=== PATIENT | female | born 2005 | race Caucasian/White ===

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

== ENCOUNTER 2023-03-13 14:31 | Emergency (ER) | payer MEDICAID ==
[~2023-03-13] VITALS: Ht 162.6 cm; Wt 113.5 kg
[~2023-03-13 14:31] MED LIST changes: +ALBU0.0912 INH; +METH4TAB1 PO
[2023-03-13 14:36] VITALS: BP 145/105; PULSE 107; RESP 17; TEMP 97.7; O2SAT 99
[2023-03-13] MEDS ORDERED: IBUP-2213 PO (15:58)
== END 2023-03-13 16:05 | disposition home or self-care (01) ==
LOC: MED 14:31
DX: S93.492A Sprain of other ligament of left ankle, initial encounter (principal); J45.909 Unspecified asthma, uncomplicated; Z79.899 Other long term (current) drug therapy; X58.XXXA Exposure to other specified factors, initial encounter; Y93.89 Activity, other specified; Y92.89 Other specified places as the place of occurrence of the external cause; Y99.8 Other external cause status
CPT/HCPCS: 73610; 73630; 99284

== ENCOUNTER 2023-08-21 18:43 | Emergency (ER) | payer MEDICAID ==
[~2023-08-21] VITALS: Ht 162.6 cm; Wt 104.3 kg
[~2023-08-21 18:43] MED LIST changes: +IBUP-2213 PO
[2023-08-21 19:58] VITALS: BP 159/91; PULSE 98; RESP 16; TEMP 98.1; O2SAT 100
[2023-08-21] MEDS: KETOROLAC 60 MG/2 ML VIAL IM ONE (22:00)
[2023-08-21] MEDS ORDERED: LIDOCAINE MPF 1% 5 ML ONE (22:24)
[2023-08-21] MEDS ORDERED: IBUP-2213 PO (22:36)
[2023-08-21] MEDS ORDERED: SULF-59 PO (22:36)
[2023-08-21] MEDS: LIDOCAINE MPF 1% 10 MG/ML VIAL INJ ONE (22:39)
== END 2023-08-21 22:41 | disposition home or self-care (01) ==
LOC: MED 18:43
DX: L02.411 Cutaneous abscess of right axilla (principal); L03.111 Cellulitis of right axilla; J45.909 Unspecified asthma, uncomplicated; Z98.890 Other specified postprocedural states; Z79.899 Other long term (current) drug therapy
CPT/HCPCS: 10060; 96372; 99284; J1885; J2001

== ENCOUNTER 2023-11-07 13:59 | Emergency (ER) | payer MEDICAID ==
[~2023-11-07] VITALS: Ht 157.5 cm; Wt 122.0 kg
[~2023-11-07 13:59] MED LIST changes: +SULF-59 PO
[2023-11-07 14:09] VITALS: BP 145/95; PULSE 102; RESP 20; TEMP 97.7; O2SAT 97
[2023-11-07 14:59] LABS: BASOPHILS # (AUTO) 0.1 K/uL (0.00-0.22); BASOPHILS % (AUTO) 0.7 % (0.0-2.0); EOSINOPHILS # (AUTO) 0.3 K/uL (0-0.4); EOSINOPHILS % (AUTO) 2.3 % (0.0-4.0); HEMATOCRIT 35.5 % (36-48); HEMOGLOBIN 11.4 g/dL (12.0-16.0); LYMPHOCYTES # (AUTO) 3.8 K/uL (2.5-16.5); LYMPHOCYTES % (AUTO) 30.4 % (20.5-51.1); MEAN CORPUSCULAR HEMOGLOBIN 26 pg (27-31); MEAN CORPUSCULAR HGB CONC 32 g/dL (33-37); MEAN CORPUSCULAR VOLUME 81.2 fL (80-94); MONOCYTES # (AUTO) 0.9 K/uL (0.8-1.0); MONOCYTES % (AUTO) 7.3 % (1.7-9.3); NEUTROPHILS # (AUTO) 7.3 K/uL (1.8-7.7); NEUTROPHILS % (AUTO) 59.3 % (42.2-75.2); PLATELET COUNT (AUTO) 498 K/uL (140-450); RED BLOOD CELL COUNT(AUTO) 4.37 MIL/uL (4.20-5.40); RED CELL DISTRIBUTION WIDTH 17.8 % (11.6-13.7); WHITE BLOOD COUNT (AUTO) 12.4 K/uL (4.5-11.0)
[2023-11-07 15:18] LABS: ANION GAP 10.3 (8-16); CALCIUM 9.4 mg/dL (8.5-10.1); CARBON DIOXIDE 29.1 mmol/L (21-32); POTASSIUM 3.4 mmol/L (3.5-5.1)
[2023-11-07 15:21] LABS: ALBUMIN 3.3 g/dL (3.4-5.0); BILIRUBIN,DIRECT 0.1 mg/dL (0.0-0.3); TOTAL BILIRUBIN 0.2 mg/dL (0.0-1.0); TOTAL PROTEIN, SERUM 7.4 g/dL (6.4-8.2)
[2023-11-07] MEDS ORDERED: DOXY-690 PO (15:41)
[2023-11-07] MEDS: IBUPROFEN 600 MG TAB PO ONE (15:46)
[2023-11-07] MEDS: ACETAMINOPHEN EXTRA STRENGTH 500 MG TAB PO ONE (15:46)
[2023-11-07 16:03] VITALS: BP 135/82; PULSE 88; RESP 16; TEMP 98; O2SAT 99
[2023-11-07] MEDS: LIDOCAINE/EPI 1% 1:100000 20 ML VIAL INJ ONE (16:03)
[2023-11-08] MEDS ORDERED: DOXY-690 PO (16:38)
== END 2023-11-07 16:03 | disposition home or self-care (01) ==
LOC: MED 13:59
DX: L03.311 Cellulitis of abdominal wall (principal); L02.211 Cutaneous abscess of abdominal wall; E66.9 Obesity, unspecified; Z68.41 Body mass index [BMI] 40.0-44.9, adult; D72.829 Elevated white blood cell count, unspecified; J45.909 Unspecified asthma, uncomplicated; Z79.2 Long term (current) use of antibiotics; Z79.1 Long term (current) use of non-steroidal anti-inflammatories (NSAID); Z79.899 Other long term (current) drug therapy
CPT/HCPCS: 36415; 80048; 80076; 83690; 85025; 99284; J2001

== ENCOUNTER 2023-11-24 16:28 | Emergency (ER) | payer MEDICAID ==
[~2023-11-24] VITALS: Ht 162.6 cm; Wt 104.3 kg
[~2023-11-24 16:28] MED LIST changes: +DOXY-690 PO
[2023-11-24 17:08] VITALS: BP 138/100; PULSE 98; RESP 18; TEMP 97; O2SAT 99
[2023-11-24 18:43] LABS: FLU A ANTIGEN negative (NEGATIVE); FLU B ANTIGEN NEGATIVE (NEGATIVE)
[2023-11-24] MEDS: ONDANSETRON 4 MG ODT PO ONE (18:43)
[2023-11-24] MEDS ORDERED: IMO2 PO (19:42)
[2023-11-24] MEDS ORDERED: ONDA-188 PO (19:42)
[2023-11-24 19:51] VITALS: BP 138/100; PULSE 98; RESP 18; TEMP 97; O2SAT 99
== END 2023-11-24 19:51 | disposition home or self-care (01) ==
LOC: MED 16:28
DX: R11.2 Nausea with vomiting, unspecified (principal); Z20.822 Contact with and (suspected) exposure to COVID-19; R19.7 Diarrhea, unspecified; R03.0 Elevated blood-pressure reading, without diagnosis of hypertension; J45.909 Unspecified asthma, uncomplicated; Z79.899 Other long term (current) drug therapy
CPT/HCPCS: 81025; 87426; 87804; 99283; Q0162